=== PATIENT | female | born 1940 | race American Indian/Alaskan Native ===

== ENCOUNTER 2021-12-03 17:25 | Emergency (ER) | payer MEDICARE ==
[2021-12-03 18:30] LABS: Basophils % (Auto) 0.8 % (0.0-1.8); Eosinophils # (Auto) 0.2 K/mm3 (0.0-0.4); Eosinophils % (Auto) 3.3 % (0.0-4.3); Hematocrit 36.2 % (30.3-42.9); Hemoglobin 11.9 gm/dl (10.1-14.3); Lymphocytes # (Auto) 1.9 K/mm3 (1.2-5.4); Lymphocytes % (Auto) 35.7 % (13.4-35.0); Mean Corpuscular HGB Conc 33 % (30-34); Mean Corpuscular Volume 89 fl (79-97); Monocytes # (Auto) 0.7 K/mm3 (0.0-0.8); Monocytes % (Auto) 12.6 % (0.0-7.3); Platelet Count 193 K/mm3 (140-440); Red Blood Count 4.08 M/mm3 (3.65-5.03); Red Cell Distribution Width 14.3 % (13.2-15.2)
[2021-12-03 18:40] LABS: INR 0.93 (0.87-1.13)
[2021-12-03 18:41] LABS: Partial Thromboplastin Time 29.3 Sec. (24.2-36.6)
[2021-12-03 19:03] LABS: Alanine Aminotransferase 9 units/L (7-56); Albumin 3.8 g/dL (3.9-5); BUN/Creatinine Ratio 19; Blood Urea Nitrogen 15 mg/dL (7-17); Calcium 8.7 mg/dL (8.4-10.2); Hemolysis Index 1
[2021-12-04] MEDS ORDERED: SODIUM CHLORIDE 0.9% 1000 ML 1,000 ML IV ONE (02:34)
--- NOTE | 2021-12-04 02:39 | Emergency Department Report ---
ED GI Bleed HPI - General Chief complaint: GI Bleed Stated complaint: BLOOD IN STOOL Time Seen by Provider: 12/04/21 02:26 Source: patient Mode of arrival: Ambulatory Limitations: No Limitations - History of Present Illness Initial comments: Patient is 81 years old female with history of GERD and arthritis. Patient presented to the ER complaining of passing blood every time she go to bathroom. Patient stated that this is started 3 days ago. Patient is complaining of right lower quadrant pain. She denied any hematemesis. Patient is not on any blood thinner medicine. Patient denied any fever or chills. MD complaint: gross hematochezia -: days(s) (3) Location: LLQ Severity scale (0 -10): 6 Quality: cramping Associated Symptoms: abdominal pain - Related Data Home Medications Medication Instructions Recorded Confirmed Last Taken HYDROcodone/APAP 5-325 [[facility] 1 each PO Q6HR PRN 10/19/14 10/22/14 10/19/14 5/325] Ibuprofen [Motrin] 800 mg PO Q8H PRN 10/19/14 10/22/14 10/19/14 traMADoL [Ultram] 50 mg PO Q6HR PRN 10/19/14 10/22/14 10/19/14 Allergies Allergy/AdvReac Type Severity Reaction Status Date / Time Penicillins AdvReac Rash Verified 12/03/21 17:36 Sulfa (Sulfonamide AdvReac Rash Verified 12/03/21 17:36 Antibiotics) ED Review of Systems ROS: Stated complaint: BLOOD IN STOOL Other details as noted in HPI Comment: All other systems reviewed and negative Constitutional: denies: chills, fever Respiratory: denies: cough, orthopnea, shortness of breath, SOB with exertion, SOB at rest, wheezing Cardiovascular: denies: chest pain, palpitations, dyspnea on exertion Gastrointestinal: abdominal pain, hematochezia. denies: nausea, vomiting, diarrhea, constipation, hematemesis, melena Musculoskeletal: denies: back pain Neurological: denies: headache, weakness, numbness, paresthesias, confusion, abnormal gait ED Past Medical Hx - Past Medical History Hx Hypertension: No Hx Heart Attack/AMI: No Hx GERD: Yes Hx Renal Disease: No Hx Arthritis: Yes (KNEES) Hx Seizures: No - Social History Smoking Status: Never Smoker - Medications Home Medications: Home Medications Medication Instructions Recorded Confirmed Last Taken Type HYDROcodone/APAP 5-325 [[facility] 1 each PO Q6HR PRN 10/19/14 10/22/14 10/19/14 History 5/325] Ibuprofen [Motrin] 800 mg PO Q8H PRN 10/19/14 10/22/14 10/19/14 History traMADoL [Ultram] 50 mg PO Q6HR PRN 10/19/14 10/22/14 10/19/14 History ED Physical Exam - General Limitations: No Limitations General appearance: alert, in no apparent distress - Head Head exam: Present: atraumatic, normocephalic, normal inspection - Eye Eye exam: Present: normal appearance - ENT ENT exam: Present: normal exam, normal orophraynx, mucous membranes moist - Neck Neck exam: Present: normal inspection, full ROM. Absent: tenderness, meningismus - Respiratory Respiratory exam: Present: normal lung sounds bilaterally - Cardiovascular Cardiovascular Exam: Present: regular rate, normal rhythm, normal heart sounds - GI/Abdominal GI/Abdominal exam: Present: soft, tenderness, normal bowel sounds. Absent: distended, guarding, rebound, rigid, organomegaly, mass, bruit, pulsatile mass, hernia - Extremities Exam Extremities exam: Present: normal inspection, full ROM, normal capillary refill. Absent: tenderness, pedal edema, joint swelling, calf tenderness - Back Exam Back exam: Present: normal inspection, full ROM. Absent: CVA tenderness (R), CVA tenderness (L) - Neurological Exam Neurological exam: Present: alert, oriented X3, CN II-XII intact, normal gait, reflexes normal. Absent: motor sensory deficit - Psychiatric Psychiatric exam: Present: normal mood - Skin Skin exam: Present: warm, intact, normal color ED Course Vital Signs 12/03/21 12/04/21 12/04/21 17:32 02:09 03:00 Temperature 98.5 F 98.4 F Pulse Rate 57 L 69 Respiratory 20 16 22 Rate Blood Pressure Blood Pressure 135/81 138/72 [Right] O2 Sat by Pulse 97 99 100 Oximetry 12/04/21 03:01 Temperature Pulse Rate 56 L Respiratory 22 Rate Blood Pressure 155/82 Blood Pressure [Right] O2 Sat by Pulse 100 Oximetry ED Medical Decision Making - Lab Data Result diagrams: 12/04/21 02:38 12/03/21 17:51 - Radiology Data Radiology results: report reviewed - Medical Decision Making Patient is 81 years old female with history of GERD and arthritis. Patient presented to the ER complaining of passing blood every time she go to bathroom. Patient stated that this is started 3 days ago. Patient is complaining of right lower quadrant pain. She denied any hematemesis. Patient is not on any blood thinner medicine. Patient denied any fever or chills. Patient remained stable with a stable vital sign. Labs reviewed and hemoglobin is 11.9 repeated few hours later and is 11.5. CT abdomen and pelvis with IV contrast showed diverticulitis at the hepatic flexure. I discussed the patient with Dr. Leal, structural analysis engineer on-call and he stated that this passing blood is most likely secondary to diverticulitis and advised patient to go home with antibiotic for 7 days and to follow-up as an outpatient. Patient given prescription for Levaquin and advised to follow-up with Dr. Leal and her primary care physician in the next 2 to 3 days. Patient also advised to return to the ER if he develop any new symptoms. Critical care attestation.: If time is entered above; I have spent that time in minutes in the direct care of this critically ill patient, excluding procedure time. ED Disposition Clinical Impression: Lower GI bleed, Acute diverticulitis Disposition: 01 HOME / SELF CARE / HOMELESS Is pt being admited?: No Condition: Stable Instructions: Diverticulitis, Gastrointestinal Bleeding Referrals: HILARIA CAVANAUGH [Other] - 3-5 Days CHAU LEAL MD [Staff Physician] - 3-5 Days Forms: Accompanied Note
[2021-12-04 02:53] LABS: Hemoglobin 11.5 gm/dl (10.1-14.3)
--- NOTE | 2021-12-04 03:57 | Cat Scan Report ---
CT ABDOMEN AND PELVIS WITH CONTRAST INDICATION / CLINICAL INFORMATION: abdominal pain/left lower quadrant pain. TECHNIQUE: Axial CT images were obtained through the abdomen and pelvis after IV contrast. All CT sc ans at this location are performed using CT dose reduction for ALARA by means of automated exposure c ontrol. COMPARISON: None available. FINDINGS: LOWER CHEST: Four-chamber cardiomegaly. LIVER: No focal lesion. No acute findings. GALLBLADDER / BILE DUCTS: No significant abnormality. Biliary ducts grossly unremarkable. SPLEEN: No significant abnormality. PANCREAS: Partially calcified cyst within the pancreatic tail. ADRENALS: No significant abnormality. KIDNEYS/URETERS: No stones or hydronephrosis. No solid renal lesion. STOMACH / DUODENUM / SMALL BOWEL: The stomach, duodenum, and small bowel demonstrate no significant a bnormality. No specific abnormality of the mesentery demonstrated. COLON: Total colonic diverticulosis, minimal inflammatory changes in the region of the hepatic flexur e are present. APPENDIX: No significant abnormality. PERITONEUM: No free air or free fluid are present within the abdomen or pelvis. 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 No thrombus. AORTA / ARTERIES: Mild atherosclerotic calcification without acute abnormality. IVC / VEINS: No significant abnormality. URINARY BLADDER: Small bladder diverticulum and anterolateral left bladder wall. REPRODUCTIVE ORGANS: No significant abnormality. ADDITIONAL ABDOMINAL/PELVIC FINDINGS: None. SKELETAL SYSTEM: No significant abnormality. IMPRESSION: 1. No findings to suggest etiology of provided symptoms. Minimal diverticulitis in the region of the hepatic flexure not excluded. 2. Partially calcified cystic lesion in the pancreatic tail. Cystic pancreatic neoplasm not excluded. Signer Name: Marcus Cat II, MD Signed: 12/04/2021 3:53 AM Workstation Name: [email or web address]
[2021-12-04] MEDS ORDERED: metroNIDAZOLE/NS 500 MG/100 ML 500 MG/100 ML BAG IV ONE (04:01)
[2021-12-04 07:37] VITALS: BP 146/65
== END 2021-12-04 07:05 | disposition home or self-care (01) ==
LOC: ED 17:25
DX: K92.2 Gastrointestinal hemorrhage, unspecified (principal); Z88.2 Allergy status to sulfonamides; Z88.0 Allergy status to penicillin
CPT/HCPCS: 36415; 74177; 80053; 83690; 85014; 85018; 85025; 85610; 85730; 86850; 86900; 86901; 87040; 96361; 96365; 96366; 96368; 99284; J1956; J7030; J7517; Q9967; 96367; 99283